=== PATIENT | male | born 1960 | race Caucasian/White ===

== ENCOUNTER 2017-05-12 12:22 | Inpatient (IN) | payer MEDICAID ==
[~2017-05-12] VITALS: Ht 177.8 cm; Wt 130.5 kg
[2017-05-12] MEDS ORDERED: KETOROLAC TROMETH 60MG/2ML VIAL IM ONE (16:00)
[2017-05-12] MEDS ORDERED: SODIUM CHLORIDE 0.9% 2,000 ML IV ONE (16:44)
[2017-05-12 17:13] LABS: Basophils # (auto) 0.1 uL; Basophils % (auto) 0.6 % (0.0-2.0); Eosinophils # (auto) 0.6 uL; Eosinophils % (auto) 4.5 % (0.0-7.0); Hematocrit 47.3 % (41.0-53.0); Hemoglobin 15.5 g/dL (13.5-17.5); Lymphocytes # (auto) 2.6 uL; Lymphocytes % (auto) 20.3 % (10.0-50.0); Mean Corpuscular Hemoglobin 29.4 pg (28.0-32.0); Mean Corpuscular Hgb Conc. 32.7 g/dL (32.0-36.0); Mean Corpuscular Volume 89.7 fL (80.0-100.0); Monocytes # (auto) 1.3 uL; Neutrophils # (auto) 8.2 uL; Neutrophils % (auto) 64.6 % (37.0-80.0); Nucleated Red Blood Cells % 0.1 %; Platelet Count (auto) 319 10^3/uL (140-450); Red Blood Cells 5.28 10^6/uL (4.5-5.90); Red Cell Distribution Width 14.3 % (11.8-14.3); White Blood Cell 12.7 10^3/uL (4.4-10.8)
[2017-05-12 17:41] LABS: Alanine Aminotransferase 20 U/L (16-61); Albumin 3.6 g/dL (3.4-5.0); Alkaline Phosphatase 83 U/L (45-117); Anion Gap 6 (5-15); Aspartate Aminotransferase 11 U/L (15-37); BUN/Creatinine Ratio 10.6; Bilirubin, Total 0.6 mg/dL (0.2-1.0); Blood Urea Nitrogen 10 mg/dL (7-18); Calcium 8.9 mg/dL (8.5-10.1); Carbon Dioxide 26 mmol/L (21-32); Chloride 106 mmol/L (98-107); GFR African American 108 mL/min; GFR Non-African American 89 mL/min; Glucose 89 mg/dL (74-106); Sodium 138 mmol/L (136-145); Total Protein 7.7 g/dL (6.4-8.2)
[2017-05-12 17:50] LABS: INR 1.11 (0.9-1.15); Partial Thromboplastin Time 30.8 sec (22.64-33.71); Prothrombin Time 12.1 sec (9.37-12.3)
[2017-05-12] MEDS ORDERED: LISINOPRIL 10 MG TAB PO ONE (18:15)
[2017-05-12] MEDS ORDERED: ONDANSETRON HCL 4 MG/2 ML VIAL IV PRN (18:15)
[2017-05-12] MEDS ORDERED: IOHEXOL 350 MG/ML 100ML IJ ONE (18:38)
[2017-05-12] MEDS: ceFAZolin 1GM/50ML 50 ML IV SCH (18:57)
[2017-05-12] MEDS: MORPHINE SULFATE 10 MG/ML INJ 1ML SDV IV PRN (21:37)
[2017-05-12 22:00] VITALS: BP_SYST 139; BP_SYST 144; BP_DIAS 85; BP_DIAS 90
[2017-05-13] MEDS: ceFAZolin 1GM/50ML 50 ML IV SCH ×3 (02:13→18:03)
[2017-05-13] MEDS ORDERED: LISI-275 PO (02:13)
[2017-05-13 05:00] VITALS: BP 127/78
[2017-05-13] MEDS: ENOXAPARIN SOD 150 MG/1 ML SYRINGE SC SCH ×2 (07:23→10:00)
[2017-05-13 08:53] VITALS: BP 127/83
[2017-05-13] MEDS: LISINOPRIL 10 MG TAB PO SCH (10:07)
[2017-05-13 13:03] VITALS: BP 140/93
[2017-05-13 17:00] VITALS: BP 141/90
[2017-05-13] MEDS: MORPHINE SULFATE 10 MG/ML INJ 1ML SDV IV PRN (20:33)
[2017-05-13] MEDS: HYDROcodone-ACET 5/325MG TAB PO PRN (20:36)
[2017-05-13 22:00] VITALS: BP 146/94
[2017-05-14] MEDS: ceFAZolin 1GM/50ML 50 ML IV SCH ×3 (02:41→17:49)
[2017-05-14] MEDS: MORPHINE SULFATE 10 MG/ML INJ 1ML SDV IV PRN ×3 (02:42→20:10)
[2017-05-14 05:19] VITALS: BP 125/84
[2017-05-14 06:49] LABS: Basophils # (auto) 0.1 uL; Basophils % (auto) 0.8 % (0.0-2.0); Eosinophils # (auto) 0.5 uL; Eosinophils % (auto) 6.3 % (0.0-7.0); Hematocrit 44.8 % (41.0-53.0); Hemoglobin 14.6 g/dL (13.5-17.5); Lymphocytes % (auto) 23.9 % (10.0-50.0); Mean Corpuscular Hemoglobin 29.3 pg (28.0-32.0); Mean Corpuscular Hgb Conc. 32.7 g/dL (32.0-36.0); Mean Corpuscular Volume 89.8 fL (80.0-100.0); Monocytes % (auto) 11.8 % (0.0-12.0); Neutrophils # (auto) 4.9 uL; Neutrophils % (auto) 57.2 % (37.0-80.0); Nucleated Red Blood Cells % 0.1 %; Platelet Count (auto) 304 10^3/uL (140-450); Red Blood Cells 4.99 10^6/uL (4.5-5.90); Red Cell Distribution Width 14.6 % (11.8-14.3); White Blood Cell 8.6 10^3/uL (4.4-10.8)
[2017-05-14 07:04] LABS: BUN/Creatinine Ratio 13.1; Calcium 8.9 mg/dL (8.5-10.1); Potassium 3.9 mmol/L (3.5-5.1)
[2017-05-14 09:00] VITALS: BP 131/91
[2017-05-14] MEDS: LISINOPRIL 10 MG TAB PO SCH (09:45)
[2017-05-14 13:00] VITALS: BP 136/100
[2017-05-14] MEDS ORDERED: GABAPENTIN 300 MG CAP PO ONE (14:45)
[2017-05-14] MEDS: APIXABAN 5 MG TAB PO SCH ×2 (15:18→22:41)
[2017-05-14 17:00] VITALS: BP 143/101
[2017-05-14] MEDS ORDERED: LISINOPRIL 10 MG TAB PO ONE (17:15)
[2017-05-14] MEDS: HYDROcodone-ACET 5/325MG TAB PO PRN (20:26)
[2017-05-14 22:00] VITALS: BP 156/91
[2017-05-14] MEDS: GABAPENTIN 300 MG CAP PO SCH (22:41)
[2017-05-15] MEDS: MORPHINE SULFATE 10 MG/ML INJ 1ML SDV IV PRN ×3 (00:52→09:08)
[2017-05-15] MEDS: ceFAZolin 1GM/50ML 50 ML IV SCH ×2 (02:18→08:56)
[2017-05-15] MEDS: GABAPENTIN 300 MG CAP PO SCH (05:06)
[2017-05-15 05:33] VITALS: BP 128/93
[2017-05-15] MEDS: APIXABAN 5 MG TAB PO SCH (08:55)
[2017-05-15] MEDS: HYDROcodone-ACET 5/325MG TAB PO PRN (09:02)
[2017-05-15] MEDS ORDERED: LISINOPRIL 20 MG TAB PO SCH (10:00)
[2017-05-21] MEDS ORDERED: APIXABAN 5 MG TAB PO SCH (22:00)
== END 2017-05-15 12:45 | disposition home or self-care (01) | DRG 110 ==
LOC: ER 12:22 → OVERFLOW 12:23 → WEST WING 20:44
PROVIDERS: ADMIT Internal Medicine; ATTEND Internal Medicine
PROC: 0JB53ZX Excision of Left Neck Subcutaneous Tissue and Fascia, Percutaneous Approach, Diagnostic (ICD-10-PCS; principal; 2017-05-14)
DX: C76.0 Malignant neoplasm of head, face and neck (principal); I82.622 Acute embolism and thrombosis of deep veins of left upper extremity; E66.01 Morbid (severe) obesity due to excess calories; G90.2 Horner's syndrome; I10 Essential (primary) hypertension; I82.C12 Acute embolism and thrombosis of left internal jugular vein; I82.B12 Acute embolism and thrombosis of left subclavian vein; Z85.038 Personal history of other malignant neoplasm of large intestine; Z79.01 Long term (current) use of anticoagulants; Z79.899 Other long term (current) drug therapy; Z92.21 Personal history of antineoplastic chemotherapy
CPT/HCPCS: 10022; 36415; 71046; 71260; 76942; 80048; 80053; 82378; 84484; 85025; 85379; 85610; 85730; 88341; 93971; 96361; 96372; 96374; 96375; J0690; J1885; J2405